=== PATIENT | male | born 1960 | race Caucasian/White ===

== ENCOUNTER 2017-07-24 17:06 | Inpatient (IN) | payer OTHER ==
[2017-07-24 17:57] VITALS: BMI 58.6
[2017-07-24 18:07] LABS: Absolute Lymphocytes (CBC) 2.5 K/uL (0.7-4.9); Absolute Monocytes 1.7 K/uL (0.1-1.3); Absolute Neutrophil 8.9 K/uL (1.8-8.0); Basophils % 0.3 % (0-1.3); Eosinophils % 0.9 % (0-4.4); Hematocrit 44.1 % (39.6-49.0); MCH 28.6 pg (27.0-35.0); MCV 91.1 fL (80-100); MPV 8.5 fL (7.6-11.3); Monocytes % 12.5 % (3.3-12.3); RBC Red Blood Cell Count 4.84 M/uL (4.33-5.43)
[2017-07-24 18:11] LABS: Potassium 4.2 mEq/L (3.6-5.0)
[2017-07-24 18:14] LABS: Albumin 3.1 g/dL (3.2-5.5); Bilirubin Total 0.4 mg/dL (0.3-1.2); Protein, Total 7.3 g/dL (6.0-8.3)
[2017-07-24] MEDS ORDERED: CEFTRIAXONE 2,000 MG in NA CHLORIDE 0.9% 100 ML IV ONE (18:26)
[2017-07-24] MEDS ORDERED: CEFTRIAXONE/SWI 2gm 2 GM/20 ML SYR IV ONE (19:00)
[2017-07-24] MEDS: ALBUTEROL 2.5 MG/3 ML NEB SOL NEB SCH (19:43)
--- NOTE | 2017-07-24 20:03 | RAD REPORT ---
EXAM DESCRIPTION: CT - Chest For Pe Angio - 07/24/2017 7:34 pm CLINICAL HISTORY: Chest pain, shortness of breath COMPARISON: None. TECHNIQUE: Dynamically enhanced 3 mm thick images of the chest were obtained during administration o f approximately 150mL Isovue 370 IV contrast. Coronal and oblique reconstruction images were generate d and reviewed. Exam utilizes a protocol to evaluate the pulmonary arterial tree. All CT scans are performed using dose optimization technique as appropriate and may include automated exposure control or mA/KV adjustment according to patient size. FINDINGS: Pulmonary emboli are present filling the right upper lobe pulmonary artery, right middle l obe pulmonary artery and the lobar and segmental branches of the right lower lobe. Pulmonary emboli p resent partially filling the left lower lobe pulmonary artery and the anterior segmental branches. No saddle embolus. The aorta as imaged shows no acute or suspicious finding. No pericardial thickening or effusion. Patchy airspace opacities are present in the right upper lobe. These could be infectious or inflammat ory changes. In the setting of right-sided pulmonary emboli this could be alveolar hemorrhage. No ple ural effusion or pleural thickening. No mediastinal or hilar suspicious masses. No chest wall masses or abnormal axillary lymphadenopathy. IMPRESSION: Extensive pulmonary embolic disease is present involving the right upper, right middle a nd right lower lobes as well as the left lower lobe. No saddle embolus. Scattered alveolar opacities in the lateral right upper lobe could be hemorrhage given the extensive right-sided pulmonary embolic disease. Unrelated pneumonia changes would be possible as well.
[2017-07-24] MEDS ORDERED: D50W 25 GM/50 ML SYRINGE IV PRN (20:07)
[2017-07-24] MEDS ORDERED: GLUCAGON 1 MG/VIAL IM PRN (20:07)
[2017-07-24] MEDS ORDERED: ZOLPIDEM TARTRATE 5 MG TABLET PO PRN (20:18)
[2017-07-24 20:25] LABS: Urine White Blood Cell Casts OK
[2017-07-24 20:26] LABS: Blood Morphology Comment NOT SEEN (NOT SEEN); Platelet Estimate ADEQ
[2017-07-24] MEDS: INSULIN -REGULAR HUMAN 50 UNIT/0.5 ML ML SQ SCH (20:52)
[2017-07-24 21:28] LABS: Urine Appearance CLEAR; Urine Bilirubin NEGATIVE (NEG); Urine Blood NEGATIVE (NEG); Urine Color YELLOW; Urine Glucose 2+ (NEG); Urine Specific Gravity <1.005 (1.005-1.030)
[2017-07-24 21:29] LABS: Urine Microscopic Reflex ORDER UMIC; Urine Protein 1+ (NEG); Urine Urobilinogen 0.2 mg/dL (0.2-1.0)
[2017-07-24 21:31] LABS: Urine Bacteria <20 /HPF (NONE SEEN); Urine RBC <5 /HPF (NONE SEEN)
[2017-07-24 21:32] LABS: Urine Culture Reflex Order NOT NEEDED
[2017-07-25] MEDS: ALBUTEROL 2.5 MG/3 ML NEB SOL NEB SCH ×4 (07:38→19:24)
--- NOTE | 2017-07-25 08:15 | P.CNS ---
Date of Consult: 07/25/17 Reason for Consult: Pulmonary embolism Chief Complaint: Chest pain shortness of breath History of Present Illness: Patient is 56 years of age admitted to the hospital with sudden onset of chest pain and shortness of breath started on Monday admitted with a diagnosis of pulmonary embolism history of DVT 7 years ago and he quit taking Xarelto due to the expense no prior cardiopulmonary history heavy smoker 1 and half packs a day shortness of breath is about the same hemodynamically stable Allergies No Known Allergies Allergy (Unverified 09/23/15 17:25) Home Medications: Furosemide [Lasix] 40 mg PO DAILY #90 tab 09/24/15 Metoprolol Succinate [Toprol Xl] 100 mg PO DAILY #90 tab 09/24/15 Rivaroxaban [Xarelto] 20 mg PO DAILY #90 tablet 09/24/15 Valsartan [Diovan] 320 mg PO DAILY #90 tablet 09/24/15 - Past Medical/Surgical History Diabetic: No -: DVT 2012 -: HTN - Family History Father Medical History: Hypertension, Diabetes, Cancer Brother Medical History: Diabetes, Cancer - Social History Smoking Status: Heavy Tobacco smoker (>10 cigarettes/day) Alcohol use: No CD- Drugs: No Caffeine use: No Place of Residence: Home Review of Systems 10-point ROS is otherwise unremarkable Respiratory: Shortness of Breath, Pleuritic Pain Physical Examination Temp Pulse Resp BP Pulse Ox 98.0 F 82 20 168/74 H 92 07/25/17 04:00 07/25/17 04:00 07/25/17 04:00 07/25/17 04:00 07/25/17 04:00 General: Alert, In no apparent distress, Oriented x3 Respiratory: Clear to auscultation bilaterally Cardiovascular: No edema, Normal S1 S2 Capillary refill: >2 Seconds Gastrointestinal: Soft and benign, Non-distended Laboratory Data (last 24 hrs) 07/24/17 17:45: Sodium 135, Potassium 4.2, BUN 14, Creatinine 1.07, Glucose 322 H, Total Bilirubin 0.4, AST 22, ALT 21, Alkaline Phosphatase 78 07/24/17 17:45: WBC 13.2 H, Hgb 13.9, Hct 44.1, Plt Count 263 - Problems (1) Pulmonary embolism Current Visit: Yes Status: Acute Plan: Patient is 56 years of age admitted with bilateral pulmonary embolism he is hemodynamically stable blood pressure is stable will check room air pulse ox he has had DVT before would taking Xarelto 2 weeks ago due to the expense he will need to be on lifelong anticoagulation will check with the pharmacy if any other region discovered otherwise left to start him on warfarin heavy smoker console not to smoke change to inhaled bronchodilator 2D echo with Doppler. Patient at this time is not a candidate for thrombolytic agent
--- NOTE | 2017-07-25 08:28 | EKG ---
Test Date: 2017-07-24 Test Time: 17:53:30 [employer] Attendant: DONNIE MEASUREMENT RESULTS: Intervals: Rate: 105 OR: 152 QRSD: 84 QT: 342 QTc: 452 [place]: P: 76 OR: 152 QRS: -66 T: 56 INTERPRETIVE STATEMENTS: Sinus tachycardia Left axis deviation Inferior infarct, age undetermined Possible Anterior infarct, age undetermined Abnormal ECG No previous ECG available for comparison Electronically Signed On 07-25-17 08:26:20 CDT by Walter Gallardo
[2017-07-25] MEDS: INSULIN -REGULAR HUMAN 50 UNIT/0.5 ML ML SQ SCH ×4 (09:23→20:32)
[2017-07-25] MEDS: ARFORMOTEROL TARTRATE 15 MCG/2 ML VIAL.NEB NEB SCH ×2 (12:00→19:24)
[2017-07-25] MEDS: predniSONE 20 MG TAB PO SCH ×2 (12:09→20:29)
[2017-07-25] MEDS: GLIMEPIRIDE 2 MG TABLET PO SCH (16:00)
[2017-07-25] MEDS ORDERED: ZOLPIDEM TARTRATE 10 MG TABLET PO PRN (16:32)
[2017-07-25] MEDS: FUROSEMIDE 40 MG TABLET PO SCH (18:40)
[2017-07-25] MEDS: METOPROLOL TAR 50 MG TAB PO SCH (20:30)
[2017-07-25] MEDS: POTASSIUM CL SA 10 MEQ TAB PO SCH (20:30)
[2017-07-25] MEDS ORDERED: APIXABAN 2.5 MG TABLET PO SCH (21:00)
[2017-07-25] MEDS ORDERED: HOME MED 1 EA UNK (Furosemide [Lasix] 80 MG) PO SCH (21:00)
[2017-07-25] MEDS ORDERED: HOME MED 1 EA UNK (Metoprolol Tartrate [Metoprolol Tartrate] 100 MG) PO SCH (21:00)
[2017-07-25] MEDS ORDERED: HOME MED 1 EA UNK (Potassium Chloride [Potassium Chloride] 20 MEQ) PO SCH (21:00)
[2017-07-25] MEDS ORDERED: METFORMIN HCL 500 MG TAB PO SCH (21:00)
--- NOTE | 2017-07-26 02:28 | HP ---
Date of Admission: 07/24/2017 Chief Complaint: Shortness of breath, right-sided chest pain. History Of Present Illness: A 56-year-old male who had previous DVT recurrent and family history of coagulopathy. He was on Xarelto, however, he missed his medicine because it was too expensive. The patient after admission had a CAT scan done, this showed evidence of severe pulmonary embolism bilate rally, right more than the left. The patient has mild hemoptysis. Past Medical History: The patient is known to have chronic venous insufficiency, hypertension. Family History: History of DVT present. Personal History: Currently nonsmoker. Allergies: NONE. Home Medicines: Please refer to the chart. Physical Examination: General: Revealed a 56-year-old, morbidly obese male. HEENT: Negative. Neck: Supple. JVD negative. Chest: Crackles, right lung. Heart: Regular. Abdomen: Pendulous, nontender. Extremities: Bilateral mild pedal edema present. Laboratory Data: White count [id number]. CAT scan; evidence of multiple pulmonary emboli involving the r ight and left lungs with possible bleeding. Assessment: 1.Major pulmonary embolism, symptomatic. 2.Hypertension. 3.Previous deep venous thrombosis, off medications. 4.Chronic venous insufficiency. 5.Newly diagnosed diabetes mellitus. Plan: Insulin, Lovenox. Pulmonary consultation. Restart home medications. TEO/TRELL Voice ID: [id number]
[2017-07-26] MEDS: FUROSEMIDE 40 MG TABLET PO SCH (05:03)
--- NOTE | 2017-07-26 07:07 | PN ---
The patient is doing much better. He has decreased wheezing and he is able to rest without any short ness of breath. There is no hemoptysis anymore. After Pulmonary rounds, the patient might be discha rged on Xarelto and to be followed in the office. TEO/TRELL Voice ID: [id number] Report ID: [id number]
--- NOTE | 2017-07-26 07:48 | ECHO ---
HEIGHT: 5 ft 11 in WEIGHT: 420 lb 0 oz DATE OF STUDY: 07/25/[address]: Gordon Sagastume MD 2-DIMENSIONAL: YES M.MODE: YES DOPPLER: YES COLOR FLOW: YES TDS: YES PORTABLE: NO DEFINITY: NO BUBBLE STUDY: NO DIAGNOSIS: PULMONARY EMBOLISM CARDIAC HISTORY: CATHERIZATION: NO SURGERY: NO PROSTHETIC VALVE: NO PACEMAKER: NO MEASUREMENTS (cm) DIASTOLIC (NORMALS) SYSTOLIC (NORMALS) IVSd 1.5 (0.6-1.2) LA Diam (1.9-4.0) LVEF 57% LVIDd 4.3 (3.5-5.7) LVIDs 3.0 (2.0-3.5) %FS 29% LVPWd 1.6 (0.6-1.2) Ao Diam 2.6 (2.0-3.7) 2 DIMENSIONAL ASSESSMENT: RIGHT ATRIUM: NORMAL LEFT ATRIUM: NORMAL RIGHT VENTRICLE: NORMAL LEFT VENTRICLE: NORMAL TRICUSPID VALVE: NORMAL MITRAL VALVE: NORMAL PULMONIC VALVE: NORMAL AORTIC VALVE: NORMAL PERICARDIAL EFFUSION: NONE AORTIC ROOT: NORMAL LEFT VENTRICULAR WALL MOTION: NORMAL DOPPLER/COLOR FLOW: MILD TRICUSPID REGURGITATION. NORMAL RIGHT VENTRICULAR SYSTOLIC PRESSURE. COMMENTS: TECHNICALLY DIFFICULT STUDY. GROSSLY NORMAL LEFT VENTRICULAR EJECTION FRACTION AND SIZE. NO PULMONARY HYPERTENSION. TECHNOLOGIST: Sarah ANNE
[2017-07-26] MEDS: ARFORMOTEROL TARTRATE 15 MCG/2 ML VIAL.NEB NEB SCH (07:53)
[2017-07-26] MEDS: ALBUTEROL 2.5 MG/3 ML NEB SOL NEB SCH ×3 (07:53→15:49)
--- NOTE | 2017-07-26 08:46 | P.PN ---
Subjective Date of Service: 07/26/17 Chief Complaint: Pulmonary embolism Subjective: Improving (Patient is breathing better a shortness of breath has improved) Review of Systems Unremarkable Physical Examination - Vital Signs Temperature: 98.5 F Blood Pressure: 99/65 Pulse: 74 Respirations: 16 Pulse Ox (%): 94 - Physical Exam General: Alert, Oriented x3 HEENT: Atraumatic Neck: Supple Respiratory: Clear to auscultation bilaterally Cardiovascular: No edema, Normal S1 S2 - Studies Microbiology Data (last 24 hrs): 07/24/17 17:45 Blood - Blood Anaerobic Blood Culture - Final Assessment & Plan - Problems (Diagnosis) (1) Pulmonary embolism Current Visit: Yes Status: Acute Plan: Patient is 56 years of age admitted with a diagnosis of pulmonary embolism echocardiogram does not show any evidence of pulmonary hypertension or right ventricular dilatation and probably has a combination of COPD and pulmonary embolism causing his hypoxemia patient is an active smoker he needs to be started on a long-acting bronchodilator patient is also agreeable to take Eliquis he needed an for lifelong basis 10 mg twice a day for 7 days then 5 mg twice a day patient be discharged today wants his oxygen his setup and he is oral anticoagulants at approved by the pharmacy blood pressure is low I suspect is from the Lasix may need to hold the Lasix for not reduce dose
[2017-07-26] MEDS ORDERED: VALSARTAN 160 MG TAB PO SCH (09:00)
[2017-07-26] MEDS ORDERED: APIXABAN 5 MG TABLET PO SCH (09:00)
[2017-07-26] MEDS ORDERED: VALSARTAN 320 MG PO SCH (09:00)
[2017-07-26] MEDS ORDERED: PAROXETINE HCL PO SCH (09:00)
[2017-07-26] MEDS ORDERED: PARoxetine HCl 10 MG TAB PO SCH (09:00)
[2017-07-26] MEDS: INSULIN -REGULAR HUMAN 50 UNIT/0.5 ML ML SQ SCH ×2 (09:01→12:38)
[2017-07-26] MEDS: POTASSIUM CL SA 10 MEQ TAB PO SCH (09:02)
[2017-07-26] MEDS: METOPROLOL TAR 50 MG TAB PO SCH (09:03)
[2017-07-26] MEDS: predniSONE 20 MG TAB PO SCH (09:03)
[2017-07-26] MEDS: GLIMEPIRIDE 2 MG TABLET PO SCH (09:04)
[2017-07-26 10:48] VITALS: O2SAT 96
[2017-07-26 11:58] VITALS: BP 124/69; TEMP 99
== END 2017-07-26 16:06 | disposition left against medical advice (07) | DRG 176 ==
LOC: 4TH 17:13 → OBSVTOIN 07-25 15:43 → INTOOBSV 07-25 15:43
PROVIDERS: ADMIT Internal Medicine; ATTEND Internal Medicine
DX: I26.99 Other pulmonary embolism without acute cor pulmonale (principal); R04.2 Hemoptysis; I87.2 Venous insufficiency (chronic) (peripheral); I10 Essential (primary) hypertension; E11.9 Type 2 diabetes mellitus without complications; F17.210 Nicotine dependence, cigarettes, uncomplicated; Z86.718 Personal history of other venous thrombosis and embolism
CPT/HCPCS: 36415; 71275; 80053; 81003; 81015; 82962; 85025; 87040; 93005; 93306; 94640; 94760; G0378; J0696; J1650; J7512; J7605; Q9967